=== PATIENT | male | born 1990 | race Caucasian/White ===

== ENCOUNTER 2016-12-23 13:57 | Emergency (ER) | payer OTHER ==
[~2016-12-23] VITALS: Ht 180.3 cm; Wt 70.4 kg
[~2016-12-23 13:57] MED LIST: AZIT250T4 PO; D-ME118S8 PO
[2016-12-23 14:46] VITALS: BP 140/91; PULSE 89; RESP 14; O2SAT 95
--- NOTE | 2016-12-23 15:28 | ED.REPORT ---
HPI-Extremity Problem Upper Date of Service Dec 23, 2016 ED Provider: MD Ethan This is a 26 year old male presenting to the emergency department complaining of L hand pain that worsened today due to traumatic injury. Pt punched a wall 3 days ago and was diagnosed with L metacarpal fracture, was splinted at [facility]. Today he removed the splint and now reports worsening pain due to fall today. Denies numbness, tingling, or any other injuries at this time. Nursing Notes Stated Complaint: LEFT HAND PAIN Chief Complaint: Extremity Trauma Nursing Notes Reviewed: Yes Allergies: Coded Allergies: No Known Allergies (Unverified Allergy, Unknown, 12/23/16) Scheduled Azithromycin (Zithromax (Z-Florian)) 250 Mg Tablet 250 MG PO DIRECTED Take two tablets by mouth on day 1, then take one tablet daily on days 2 through 5. Promethazine DM Syrup (Promethazine DM Syrup) 118 Ml Syrup 5 ML PO TID Scheduled PRN Ibuprofen (Ibuprofen) 800 Mg Tablet 800 MG PO TID PRN PRN For Pain General Time Seen by MD: 15:27 Chief Complaint Hand Injury left Hx Obtained From: Patient Arrived By: Walk-in Onset Occurred: 4 days ago Symptom Duration: Since onset Severity: Current: Mild Pertinent Negative: Pt denies other symptoms Recent Healthcare: No recent hospitalization, Recent doctor visit Similar Sx Previous: No Past Medical History Past Medical History denies Past Surgical History denies Ambulatory Status Independent Review of Systems Constitutional: Denies: Chills, Fever Musculoskeletal: Reports: Extremity pain, Extremity swelling Neurologic: Denies: Headache, Numbness, Weakness Complete sys rev & neg: except as marked. GI: Denies: Nausea Physical Exam Initial Vital Signs Vital Signs (First) Date Time Temp Pulse Resp B/P Pulse Ox O2 Delivery O2 Flow Rate FiO2 12/23/16 14:46 36.7 89 14 140/91 95 Room Air Initial VS: Reviewed General/Constitutional: Well-developed, Well-nourished Head / Eyes: Atraumatic, Normocephalic, PERRL ENT: Mucous membranes moist, Conjunctiva normal, No scleral icterus Neck: Supple, Non-tender, Full range of motion Respiratory: Breath sounds normal, Clear to auscultation, No respiratory distress Cardiovascular: Regular rate & rhythm, Heart sounds normal, Intact distal pulses Lower Extremities: Vascular intact, Neuro intact, No swelling, No tenderness Skin: Warm, Dry, No cyanosis Neurologic: Alert, Oriented, Nonfocal Psychiatric: Mood/affect normal, Behavior normal, Normal thought content General/Constitutional: Awake, Alert, Well appearing Wrist / Hand: Neurologic intact, Vascular intact Left Wrist: Positive: ROM reduced, Tenderness present... Interpretation & Diagnostics X-Ray Interpretation Xray Interpretation: IMPRESSION: Comminuted fracture with slight angulation of the mid and distal fifth metacarpal. Dictated by: Barbara Blandon M.D. on 12/23/2016 at 15:54 Approved by: Barbara Blandon M.D. on 12/23/2016 at 16:00 Study Performed: hand left Re-Eval/Medical Decision Med Decision/Clinical Course 26-year-old male with left fifth metacarpal fracture several days ago. He was splinted in [place] but took off his splint. He did not follow-up with orthopedics as scheduled. X-ray today shows fracture. Patient was splinted again with altered gutter splint. neurovascularly intact status post splint placement which I evaluated. He is advised to follow up with orthopedics next week. He was given their phone number. Counseled Regarding: Diagnosis, Lab results, Need for follow-up, When/why to return to ED Discharge & Departure Impression: Primary Impression: Hand fracture, left Encounter type: initial encounter Fracture type: closed Qualified Code: S62.92XA - Unspecified fracture of left wrist and hand, initial encounter for closed fracture Disposition: Home Discharge Condition All VS Reviewed: Yes Condition: Stable Patient Instructions: Splint Care (ED) Additional Instructions: Keep your hand in the splint. Tylenol or ibuprofen as needed for pain control. Follow up with orthopedics as scheduled. Return to the emergency department for any new or worsening symptoms Referrals: NOPCP (PCP) Scribe Attestation Portions of this note were transcribed by Ulisses Farooq. I, Dr. Long personally performed the history, physical exam and medical decision-making; I reviewed and confirmed the accuracy of the information in the transcribed note. Signed by: stef Sotelo. 12/23/2016, 17:00. Johnny Long MD Dec 23, 2016 15:28 ULISSES FAROOQ Dec 23, 2016 15:33
--- NOTE | 2016-12-23 16:02 | DRSVH ---
PROCEDURE: X-RAY LEFT HAND, MINIMUM THREE VIEWS ([id number]) INDICATIONS: injury TECHNIQUE: 3 views of the hand(s) acquired. COMPARISON: None. FINDINGS: Bones: There is a comminuted fracture with slight ventral angulation within the mid and distal fifth metacarpal. Distal aspects of the fourth and fifth digits are not well-visualized secondary to patien t positioning. Soft tissues: No suspicious soft tissue calcifications. IMPRESSION: Comminuted fracture with slight angulation of the mid and distal fifth metacarpal. Dictated by: Barbara Blandon M.D. on 12/23/2016 at 15:54 Approved by: Barbara Blandon M.D. on 12/23/2016 at 16:00
[2016-12-23] MEDS ORDERED: HYDROcodone-APAP 10-325 mg PO ONE (16:20)
[2016-12-23] MEDS ORDERED: HYDR-4003 PO (16:33)
[2016-12-23] MEDS ORDERED: IBUP800T28 PO (16:37)
== END 2016-12-23 16:55 | disposition home or self-care (01) ==
LOC: SED 13:57
DX: S62.307A Unspecified fracture of fifth metacarpal bone, left hand, initial encounter for closed fracture (principal); W22.09XD Striking against other stationary object, subsequent encounter; V00.131A Fall from skateboard, initial encounter; Y93.51 Activity, roller skating (inline) and skateboarding; Y99.8 Other external cause status; Y92.019 Unspecified place in single-family (private) house as the place of occurrence of the external cause; F12.10 Cannabis abuse, uncomplicated

== ENCOUNTER 2017-02-14 19:39 | Emergency (ER) | payer OTHER ==
[~2017-02-14] VITALS: Ht 180.3 cm; Wt 71.0 kg
[~2017-02-14 19:39] MED LIST changes: +IBUP800T28 PO
[2017-02-14 20:21] VITALS: BP 146/92; PULSE 101; RESP 16; O2SAT 96
--- NOTE | 2017-02-15 00:29 | ED.REPORT ---
HPI-Hand Prob/Inj Date of Service Feb 15, 2017 ED Provider: Trey Garcia MD This is a 26 year old male with a history of polysubstance abuse and MRSA presenting to the emergency department due to right hand pain and swelling that began yesterday. Reports painful range of motion, denies loss of sensation. Reports using methamphetamine three days ago. Last THC use today. Denies fever, chills, nausea, or vomiting at this time. Nursing Notes Stated Complaint: LEFT HAND ABSCESS/POSSIBLE BROKEN Chief Complaint: Extremity Trauma Nursing Notes Reviewed: Yes Allergies: Coded Allergies: No Known Allergies (Unverified Allergy, Unknown, 12/23/16) Scheduled Azithromycin (Zithromax (Z-Florian)) 250 Mg Tablet 250 MG PO DIRECTED Take two tablets by mouth on day 1, then take one tablet daily on days 2 through 5. Promethazine DM Syrup (Promethazine DM Syrup) 118 Ml Syrup 5 ML PO TID Scheduled PRN Ibuprofen (Ibuprofen) 800 Mg Tablet 800 MG PO TID PRN PRN For Pain General Time Seen by Provider: 00:30 Chief Complaint Hand pain right Hx Obtained From: Patient Arrived By: Walk-in Onset Occurred: Yesterday Symptom Duration: Since onset Severity: Current: Moderate Pertinent Negative: Pt denies other symptoms Recent Healthcare: No recent doctor visit, No recent hospitalization Similar Sx Previous: No Past Medical History Past Medical History Hx MRSA Past Surgical History denies Smoking History Current Every Day Smoker Social History Drug Use: Meth, THC Ambulatory Status Independent Review of Systems Constitutional: Denies: Chills, Fever Musculoskeletal: Reports: Extremity pain, Extremity swelling Skin: Reports Rash, Reports Swelling, Denies Diaphoresis Complete sys rev & neg: except as marked. Respiratory: Denies: Non-productive cough, Shortness of breath GI: Denies: Abdominal pain, Nausea, Vomiting Physical Exam Initial Vital Signs Vital Signs (First) Date Time Temp Pulse Resp B/P Pulse Ox O2 Delivery O2 Flow Rate FiO2 02/14/17 20:21 36.6 101 16 146/92 96 Room Air Initial VS: Reviewed, Vital signs abnormal Head / Eyes: Atraumatic, Normocephalic, PERRL ENT: Mucous membranes moist, Conjunctiva normal, No scleral icterus Neck: Supple, Non-tender, Full range of motion Respiratory: Breath sounds normal, Clear to auscultation, No respiratory distress Cardiovascular: Regular rate & rhythm, Heart sounds normal, Intact distal pulses Extremities: Neuro intact Neurologic: Alert, Oriented, Nonfocal Psychiatric: Mood/affect normal, Behavior normal, Normal thought content Wrist / Hand: Neurologic intact PIP overlying second digit has a small abscess with surroudning cellulitis extending tod orsum of hand. General/Constitutional: Awake, Alert Alertness: Positive: Sleeping but arousable Skin: Warm Multiple open sores on legs. No injection sites, no track scott, no edema. Interpretation & Diagnostics Lab Results Interpretation Result Diagram: 02/15/17 0125 02/15/17 0125 Test 02/15/17 01:25 02/15/17 02:50 White Blood Count 8.3th/mm3 (3.8-10.1) Red Blood Count 5.05mil/mm3 (4.40-5.80) Hemoglobin 15.4g/dL (13.8-17.2) Hematocrit 44.0% (41.0-50.0) Mean Corpuscular Volume 87.1fL (81-100) Mean Corpuscular Hemoglobin 30.5pg (27.0-35.0) Mean Corpuscular Hemoglobin Concent 35.0% (32.0-37.0) Red Cell Distribution Width 13.4% (12.3-15.4) Platelet Count 219bil/L (150-400) Neutrophils (%) (Auto) 54.0% (40-74) Lymphocytes (%) (Auto) 34.2% (14-46) Monocytes (%) (Auto) 9.9% (4-12) Eosinophils (%) (Auto) 1.3% (0-5) Basophils (%) (Auto) 0.5% (0-3) Sodium Level 139mEq/L (134-144) Potassium Level 4.3mEq/L (3.5-5.2) Chloride Level 100mEq/L (97-108) Carbon Dioxide Level 24mmol/L (18-29) Blood Urea Nitrogen 7mg/dL (6-20) Creatinine 0.74mg/dL (0.76-1.27) Estimat Glomerular Filtration Rate 136mL/min (>59) Glucose Level 95mg/dL (60-99) Lactic Acid Level 0.9mmol/L (0.4-2.0) Calcium Level 8.7mg/dL (8.5-10.1) Magnesium Level 2.1mg/dL (1.6-2.6) Total Bilirubin 0.6mg/dL (0.0-1.2) Aspartate Amino Transf (AST/SGOT) 21U/L (0-50) Alanine Aminotransferase (ALT/SGPT) 14U/L (0-44) Alkaline Phosphatase 72U/L (25-150) Total Protein 6.8g/dL (6.4-8.4) Albumin 3.9g/dL (3.4-5.0) Hold Urine Received (Received) Lab values outside NL range: no clinical significance. Lab Results Interpretation: Culture pending X-Ray Interpretation Xray Interpretation: R hand x-ray Interpretation / Wet Read by: Wet read ED physician Interpretation: Normal exam Re-Eval/Medical Decision Med Decision/Clinical Course 26-year-old female who uses methamphetamine. He has multiple pick sores. He has open ulceration on the PIP of the third finger. There is some redness of the back of him. He was given a dose of IV vancomycin but it was stopped about a quarter way through because of itching. He was treated with Benadryl. He was then given clindamycin 900 mg IV and will be discharged home with a clindamycin prepack. He was also given oxycodone prepack for pain management. He will be rechecked in 2 days or sooner if there is increasing swelling and pain. Counseled Regarding: Diagnosis, Lab results, Need for follow-up Discharge & Departure Primary Impression: Cellulitis and abscess of hand Additional Impression: Methamphetamine abuse Disposition: Home Discharge Condition All VS Reviewed: Yes Condition: Stable Patient Instructions: Cellulitis (ED) Additional Instructions: You received clindamycin 900 mg IV in the emergency room. Continue clindamycin 300 mg 3 times a day for 10 days, prepack dispensed. Apply Bactroban to the sores twice daily. Buy benzoyl peroxide 10% wash , and wash her entire body with it daily for a week. This will get rid of the bacteria on your skin. Your culture is pending to know for sure which type of bacteria it is. Do not use meth anymore. Referrals: NOPCP (PCP) Scribe Attestation Portions of this note were transcribed by Ulisses Ramirez IDr. Garcia personally performed the history, physical exam and medical decision-making; I reviewed and confirmed the accuracy of the information in the transcribed note. Signed by: stef Sotelo. 02/14/2017, 06:00. Trey Garcia MD Feb 15, 2017 00:29 ULISSES FAROOQ Feb 15, 2017 00:30
[2017-02-15] MEDS ORDERED: 0.9% Sodium Chloride 1,000 ML IV ONE (00:59)
[2017-02-15] MEDS ORDERED: HYDROmorphone 0.5 mg/0.5 mL iSecure Syringe IVPUSH PRN (01:00)
[2017-02-15] MEDS ORDERED: Vancomycin Dose per Pharmacist XX ONE (01:08)
[2017-02-15] MEDS ORDERED: Vancomycin Inj 1,500 MG in 0.9% Sodium Chloride 500 ML IV ONE (01:10)
[2017-02-15 01:35] LABS: BASOPHILS % (AUTO) 0.5 % (0-3); EOSINOPHILS % (AUTO) 1.3 % (0-5); MONOCYTES % (AUTO) 9.9 % (4-12); Mean Corpuscular Hemoglobin 30.5 pg (27.0-35.0); Mean Corpuscular Volume 87.1 fL (81-100); Platelet Count 219 bil/L (150-400)
[2017-02-15 02:13] LABS: Magnesium 2.1 mg/dL (1.6-2.6)
[2017-02-15 02:52] VITALS: BP 114/64; PULSE 78; RESP 20; O2SAT 98
[2017-02-15] MEDS ORDERED: Clindamycin Inj 900 MG in IV Premix 1 EACH IV ONE (03:00)
[2017-02-15] MEDS ORDERED: _oxyCODONE/APAP 5-325 mg Tablet PO PRN (04:05)
[2017-02-15] MEDS ORDERED: _Clindamycin 150 mg Capsule PO SCH (06:30)
[2017-02-15 06:51] VITALS: BP 126/85; PULSE 62; RESP 16; O2SAT 98
--- NOTE | 2017-02-15 08:54 | DRSVH ---
PROCEDURE: X-RAY RIGHT HAND, MINIMUM THREE VIEWS ([id number]) INDICATIONS: hand pain TECHNIQUE: 3 views of the hand(s) acquired. COMPARISON: None. FINDINGS: Bones: No fractures or dislocations. Remote boxer fracture. Carpal bones are normally aligned. No suspicious bony lesions. Soft tissues: No suspicious soft tissue calcifications. Soft tissue swelling involving the thenar e minence and dorsal aspect of the hand. IMPRESSION: No displaced fracture seen. If there is continued pain, followup exam or additional sheba ging such as MRI or CT could be performed for further assessment. Dictated by: Dmitry De La Rosa Amna Interpreted: Charmaine Beltran MD on 02/15/2017 at 8:53 Transcribed by: BILL on 02/15/2017 at 8:53 Approved by: Charmaine Beltran M.D. on 02/15/2017 at 9:34
== END 2017-02-15 06:19 | disposition home or self-care (01) ==
LOC: SED 19:39
DX: L03.113 Cellulitis of right upper limb (principal); L02.511 Cutaneous abscess of right hand; W21.89XA Striking against or struck by other sports equipment, initial encounter; Y93.89 Activity, other specified; Y92.89 Other specified places as the place of occurrence of the external cause; Y99.8 Other external cause status; F15.10 Other stimulant abuse, uncomplicated; F17.200 Nicotine dependence, unspecified, uncomplicated; Z86.14 Personal history of Methicillin resistant Staphylococcus aureus infection
CPT/HCPCS: 73130; 80053; 81002; 83605; 83735; 85025; 87070; 87147; 87186; 87205; 96365; 96367; 96375; 99285; J1170; J1200; J3370; J7030; J7040